=== PATIENT | male | born 2000 | race Caucasian/White ===

== ENCOUNTER 2023-10-27 02:30 | Emergency (ER) | payer OTHER, SELFPAY ==
[2023-10-27] VITALS (15 sets, daily range): BP systolic 148–181; BP diastolic 85–102; PULSE 109–127; RESP 20; TEMP 36.4; O2SAT 95–99; BMI 32.8
[2023-10-27] MEDS: LORazepam 1 MG TABLET PO ×2 (03:10→04:55)
[2023-10-27] MEDS: 0.9 % SODIUM CHLORIDE 1000 ml 1,000 ML IV ×2 (03:10→04:45)
--- NOTE | 2023-10-27 04:28 | ED.GENADULT ---
HPI - General Adult General Date Seen: 10/27/23 Chief complaint: Anxiety Stated complaint: Stroke (neurology) Source: patient Mode of arrival: ambulatory Limitations: no limitations History of Present Illness HPI narrative: Patient presents to the emergency department from work for right-sided facial numbness, decreased vision to right eye and full body weakness. He states he was at work normally when he started having these symptoms. He does state they have been improving since he arrived to the emergency department. He is brought here by a colleague. Was able to walk into the department. Denies ever having symptoms like this before. States his vision has improved significantly by still feels weak. He does admit to drinking a 0.5 L to L of whiskey daily for the past 2 months in states his last drink was at 07:00. Denies chest pain, shortness of breath, fevers, chills, headache. States he feels mildly dehydrated. States he was concerned he was having a stroke.? Related Data Previous Rx's Medication Instructions Recorded chlordiazepoxide HCl 25 mg capsule See Rx Instructions .Route 10/27/23 .COMPLEX PRN #22 caps Allergies Allergy/AdvReac Type Severity Reaction Status Date / Time No Known Drug Allergies Allergy Verified 10/27/23 05:07 [facility] Social History How often do you have a drink containing alcohol: 4 or more times a week How many standard drinks containing alcohol do you have on a typical day: 10 or more How often do you have six or more drinks on one occasion: Daily or almost daily AUDIT-C Alcohol total score: 12 Exam Narrative: Exam Narrative: Const: Well-nourished, Well-developed, in mild distress. Eyes: PERRL, no conjunctival injection, and symmetrical lids HENT: Atraumatic external nose and ears. Moist mucous membranes. Neck: Symmetric, trachea midline, No thyromegaly. CVS: Tachycardic, No murmurs or gallops. Peripheral pulses 2+ and equal in all extremities RESP: Unlabored respiratory effort. Clear to auscultation bilaterally. GI: Nontender/Nondistended, No rebound or guarding. MSK:Extremities w/o deformity, Normal Active ROM Skin: Warm, diaphoretic. No rashes or lesions. Neuro: Normal Muscle tone, No focal neurological deficits. Psych: Awake, Alert, & Oriented x3. Appropriate mood and affect. Const: Vital Signs, click to edit/add: Vital Signs - 24 hr 10/27/23 02:30 10/27/23 02:45 10/27/23 03:15 Temperature 97.6 F Pulse Rate Pulse Rate [Right Pulse Oximeter] 123 H 124 H 109 H Respiratory Rate 20 20 20 Blood Pressure Blood Pressure [Le ft Arm] Blood Pressure [Le ft Upper Arm] 181/87 H 164/94 H 151/102 H Pulse Oximetry 97 99 98 Oxygen Delivery Me thod Room Air Room Air Room Air 10/27/23 03:30 10/27/23 04:48 10/27/23 04:59 Temperature Pulse Rate 119 H Pulse Rate [Right Pulse Oximeter] 120 H 121 H Respiratory Rate 20 20 Blood Pressure Blood Pressure [Le ft Arm] 155/95 H Blood Pressure [Le ft Upper Arm] 155/95 H Pulse Oximetry 98 98 95 Oxygen Delivery Me thod Room Air Room Air 10/27/23 05:00 10/27/23 05:20 10/27/23 05:35 Temperature Pulse Rate 124 H 118 H Pulse Rate [Right Pulse Oximeter] Respiratory Rate Blood Pressure 152/101 H Blood Pressure [Le ft Arm] Blood Pressure [Le ft Upper Arm] Pulse Oximetry 95 96 Oxygen Delivery Me thod 10/27/23 05:40 10/27/23 05:42 10/27/23 05:43 Temperature Pulse Rate 127 H 117 H 113 H Pulse Rate [Right Pulse Oximeter] Respiratory Rate Blood Pressure 148/102 H Blood Pressure [Le ft Arm] Blood Pressure [Le ft Upper Arm] Pulse Oximetry 97 97 97 Oxygen Delivery Me thod 10/27/23 06:00 10/27/23 06:02 Temperature Pulse Rate 119 H 116 H Pulse Rate [Right Pulse Oximeter] Respiratory Rate Blood Pressure 148/85 H Blood Pressure [Le ft Arm] Blood Pressure [Le ft Upper Arm] Pulse Oximetry 95 96 Oxygen Delivery Me thod Course Vital Signs Vital signs: Initial Vital Signs Temperature 97.6 F 10/27/23 02:30 Temperature Source Temporal Artery Scan 10/27/23 02:30 Pulse Rate 123 H 10/27/23 02:30 Pulse Rhythm Regular 10/27/23 02:30 Respiratory Rate 20 10/27/23 02:30 Blood Pressure 181/87 H 10/27/23 02:30 Blood Pressure Mean 118 H 10/27/23 02:30 Blood Pressure Position Sitting 10/27/23 02:30 Pulse Oximetry 97 10/27/23 02:30 Oxygen Delivery Method Room Air 10/27/23 02:30 Vital Signs Temperature 97.6 F 10/27/23 02:30 Pulse Rate 123 H 10/27/23 02:30 Respiratory Rate 20 10/27/23 02:30 Blood Pressure 181/87 H 10/27/23 02:30 Pulse Oximetry 97 10/27/23 02:30 Oxygen Delivery Method Room Air 10/27/23 02:30 Temperature 97.6 F 10/27/23 02:30 Pulse Rate 116 H 10/27/23 06:02 Respiratory Rate 20 10/27/23 04:48 Blood Pressure 148/85 H 10/27/23 06:02 Pulse Oximetry 96 10/27/23 06:02 Oxygen Delivery Method Room Air 10/27/23 04:48 Medications Administered Medications: Generic Name Dose Route Start Last Admin Trade Name Freq PRN Reason Stop Dose Admin Sodium Chloride 1,000 mls @ 1,000 mls/hr 10/27/23 05:30 10/27/23 04:20 0.9 % Sodium Chloride 1000 Ml IV 10/27/23 06:29 Infused .Q1H ROSANNA Infusion Sodium Chloride 1,000 mls @ 1,000 mls/hr 10/27/23 05:30 10/27/23 05:36 0.9 % Sodium Chloride 1000 Ml IV 10/27/23 06:29 Infused .Q1H ROSANNA Infusion Discontinued Medications Generic Name Dose Route Start Last Admin Trade Name Freq PRN Reason Stop Dose Admin Lactated Ringer's 1,000 mls @ 1,000 mls/hr 10/27/23 04:31 10/27/23 05:26 Lactated Ringers 1000 Ml IV 10/27/23 05:30 Not Given .Q1H ONE Lactated Ringer's 1,000 mls @ 1,000 mls/hr 10/27/23 04:47 10/27/23 05:26 Lactated Ringers 1000 Ml IV 10/27/23 05:46 Not Given .Q1H ONE Lorazepam 1 mg 10/27/23 04:31 10/27/23 03:10 Lorazepam 1 Mg Tablet PO 10/27/23 04:32 1 mg ONCE ONE Administration Lorazepam 1 mg 10/27/23 04:47 10/27/23 04:55 Lorazepam 1 Mg Tablet PO 10/27/23 04:48 1 mg ONCE ONE Administration Potassium Chloride 40 meq 10/27/23 05:24 10/27/23 05:35 Potassium Chloride 10 Meq Capsule Er PO 10/27/23 05:25 40 meq ONCE ONE Administration Medical Decision Making MDM Narrative Medical decision making narrative: Patient is a 23-year-old male presenting to emergency department for weakness and right-sided facial numbness and vision issues. The symptoms have been improving even prior to arriving to the emergency department. Considering his age and bilateral weakness this seems unlikely to be a stroke. We will do a head CT though to rule out acute intracranial masses. He appears very anxious and a dose of Ativan was given. Will also give him fluids due to his likely dehydration. Will check a CMP, CBC, magnesium, EtOH, urinalysis. CMP showed some elevated AST and ALT levels. This is likely due to his heavy drinking that he has been doing. Rest of his lab work shows no concerning abnormalities other than a slightly low potassium at 2.9, this was replenished. Head CT shows no concerning findings. Initially his heart rate did improve after the Ativan and fluids any states he was feeling better. We continue to monitor and his heart rate went to the 130s to 140s. Still appears to be sinus tachycardia. This is likely secondary to alcohol withdrawals considering his history. Will do CIWA and given another dose of Ativan along with another L of fluids. His heart rate after the 2nd round of medications was in the 110's. He states all his symptoms are now gone. CIWA score was 1 at this point. I spoke to the patient and he is not showing any other signs of alcohol withdrawal other than the tachycardia. I explained to him the concerns for alcohol withdrawal he states he understands. Explained that he will need to return to the emergency department if he starts developing worsening symptoms of withdrawal. He is having no signs of DT or alcoholic hallucinations. He is still tachycardic and is mildly hypertensive but he is otherwise asymptomatic and his last drink has been too recent for DTs. We did check a point of care troponin also considering the persistent tachycardia. It was 0.00. EKG showed no concerning findings other than the previously mentioned tachycardia Lab Data Labs: Lab Results 10/27/23 10/27/23 Range/Units 04:31 06:07 WBC 8.79 (4.50-11.00) K/uL RBC 5.15 (4.30-5.90) m/uL Hgb 15.6 (13.5-17.5) gm/dL Hct 44.1 (37.0-53.0) % MCV 86 (80-100) fL MCH 30 (26-34) pg MCHC 35 (32-36) gm/dL RDW Coeff of Angelika 12.5 (11.5-15.5) % Plt Count 212 (140-440) K/uL Neut % (Auto) 44.2 (42.0-72.0) % Lymph % (Auto) 42.4 (20-44) % [place] % (Auto) 11.0 (0.0-11.0) % Eos % (Auto) 1.3 (0.0-7.0) % Baso % (Auto) 0.5 (0.0-3.0) % Neut # (Auto) 3.90 (1.7-7.0) K/uL Lymph # (Auto) 3.70 H (0.90-2.90) K/uL [place] # (Auto) 1.00 H (0.00-0.90) K/UL Eos # (Auto) 0.10 (0.00-0.50) K/uL Baso # (Auto) 0.00 (0.00-0.30) K/uL Abs Immat Gran (auto) 0.10 (0.00-0.30) K/uL Imm/Tot Granulo (auto) 0.6 % Sodium 136 (135-149) mmol/L Potassium 2.9 L* (3.6-5.1) mmol/L Chloride 103 (96-114) mmol/L Carbon Dioxide 25 (20-32) mmol/L Anion Gap 8 (7-15) mEq/L BUN 17 (5-24) mg/dL Creatinine 1.1 (0.5-1.5) mg/dL Estimated Creat Clear 109.34 Estimated GFR 96 ml/min Glucose 101 (60-115) mg/dL Calcium 9.0 (8.4-10.6) mg/dL Magnesium 1.4 L (1.5-2.6) mg/dL Total Bilirubin 0.6 (0.1-1.5) mg/dL AST 120 H (12-35) U/L ALT 146 H (4-50) U/L Alkaline Phosphatase 91 (40-150) U/L Total Protein 8.8 H (6.0-8.3) g/dL Albumin 5.0 (3.3-5.0) g/dL Ethyl Alcohol < 0.01 L (0.01-0.03) % POC Troponin I 0.00 L (0.01-0.04) ng/ml Imaging Data CT scan - head: Attestation: I have reviewed the pertinent imaging results. Radiologist's impression: Unremarkable noncontrast head CT. Please note that all CT scans at this facility use dose modulation, iterative reconstruction, and/or weight-based dosing when appropriate to reduce radiation dose to as low as reasonably achievable. Dictated by Anastacio Ratliff MD @ 10/27/2023 3:52:18 AM ECG Data Attestation: I personally reviewed and interpreted this ECG as follows: Prior ECG tracings: not available for review Interpretation: Sinus tachycardia with rate of 110 beats per minute, normal intervals, indeterminate axis, no ST or T-wave abnormalities. Discharge Plan Discharge Clinical Impression: Alcohol use disorder, Dehydration, Elevated LFTs Alcohol withdrawal Qualifiers: Complication of substance-induced condition: uncomplicated Qualified Code(s): F10.930 - Alcohol use, unspecified with withdrawal, uncomplicated Patient Disposition: Home, Self-Care Condition: Stable Instructions: Dehydration (DC), Abuse of Alcohol (ED), Acute Delirium (ED) Additional Instructions: Your symptoms were likely secondary to dehydration. Of note your liver enzymes are starting to elevate. This could be from dehydration could also be the 1st signs of liver disease caused by your heavy drinking. I highly recommend you quit drinking alcohol as it will likely lead to you developing cirrhosis and eventual I am also concerned year going through alcohol withdrawals. Take the Librium as directed. Symptoms of worsening withdrawals includes seizures, hallucinations, issues with your attention, awareness, memory, orientation, perception. If you or anyone else notices the symptoms return to the emergency department immediately. This could be sign of worsening withdrawal symptoms. Prescriptions: New chlordiazepoxide HCl 25 mg capsule See Rx Instructions .ROUTE .COMPLEX PRNQty: 22 0RF Rx Instructions: 50mg of chlordiazepoxide every 8 hours for two days, then decrease to 25mg every 8 hours for another two days followed by 25mg PRN as needed Follow Up/Referrals: Provider,Not a Local [Primary Care Provider] - Stand Alone Forms: Appointedd Info Instructions
--- NOTE | 2023-10-27 04:31 | CT_ITS ---
Patient: RONN ALFREDO Facility:?[facility] Patient ID:?[id number] Site Patient ID:?[id number]. Site :?[id number] Study:?CT-Head W/O-10/27/2023 3:16:08 AM Ordering Physician:LAVERNE Final Report: INDICATION: Right-sided facial numbness. TECHNIQUE: CT head without contrast. COMPARISON: None. FINDINGS: CSF spaces: Within normal limits for age. Brain parenchyma and extra-axial spaces: The delacruz-white differentiation is normal. No sign of mass, hemorrhage, or midline shift. No extra-axial fluid collection. Skull base and calvarium: The visualized paranasal sinuses and mastoid air cells demonstrate no acute or significant findings. The visualized orbits are grossly unremarkable. No skull fractures. IMPRESSION: Unremarkable noncontrast head CT. Please note that all CT scans at this facility use dose modulation, iterative reconstruction, and/or weight-based dosing when appropriate to reduce radiation dose to as low as reasonably achievable. Dictated by Anastacio Ratliff MD @ 10/27/2023 3:52:18 AM Signed by:?Anastacio Ratliff MD @10/27/2023 3:52:18 AM (Electronic Signature)
[2023-10-27 05:20] LABS: Sodium* 136 mmol/L (135-149)
[2023-10-27 05:21] LABS: Anion Gap 8 mEq/L (7-15); Carbon Dioxide* 25 mmol/L (20-32); Chloride* 103 mmol/L (96-114); Potassium* 2.9 mmol/L (3.6-5.1)
[2023-10-27 05:22] LABS: Alanine Aminotransferase* 146 U/L (4-50); Alkaline Phosphatase* 91 U/L (40-150); Aspartate Amino Transferase* 120 U/L (12-35); Bilirubin Total* 0.6 mg/dL (0.1-1.5); Blood Urea Nitrogen* 17 mg/dL (5-24); Creatinine* 1.1 mg/dL (0.5-1.5); Est. Creatinine Clearance* 109.34; Estimated Glomerular Filt Rate 96 ml/min; Glucose* 101 mg/dL (60-115); Magnesium* 1.4 mg/dL (1.5-2.6); Total Protein* 8.8 g/dL (6.0-8.3)
[2023-10-27 05:23] LABS: Ethanol* < 0.01 % (0.01-0.03); Hematocrit 44.1 % (37.0-53.0); Hemoglobin* 15.6 gm/dL (13.5-17.5); Red Blood Count 5.15 m/uL (4.30-5.90); White Blood Count* 8.79 K/uL (4.50-11.00)
[2023-10-27 05:24] LABS: Basophils Percent Auto 0.5 % (0.0-3.0); Eosinophils Percent Auto 1.3 % (0.0-7.0); Immature Granulocytes Pct Auto 0.6 %; Lymphocytes Percent Auto 42.4 % (20-44); Mean Corpuscular HGB Conc 35 gm/dL (32-36); Mean Corpuscular Hemoglobin 30 pg (26-34); Mean Corpuscular Volume 86 fL (80-100); Neutrophils Percent Auto 44.2 % (42.0-72.0); Platelet Count* 212 K/uL (140-440); RDW Coefficient of Variation % 12.5 % (11.5-15.5)
[2023-10-27 05:25] LABS: Slide Review Reflex No
[2023-10-27] MEDS: POTASSIUM CHLORIDE 10 MEQ CAPSULE ER 40 MEQ PO (05:35)
--- NOTE | 2023-10-27 06:18 | ED.NURSE ---
pt ambulated to restroom. reports feeling much better.
[2023-10-27 06:38] LABS: Appearance Urine Clear (Clear); Bilirubin Urine Negative (Negative); Blood Urine Negative (Negative); Color Urine Yellow (Yellow); Glucose Urine Negative (Negative); Ketones Urine Negative (Negative); Leukocyte Esterase Urine Negative (Negative); Nitrite Urine Negative (Negative); Protein Urine Negative (Negative); RBC Urine 0-2 (0-2); Urobilinogen Urine 0.2 (0.2-1.0); WBC Urine 0-2 (0-5)
== END 2023-10-27 06:25 | disposition home or self-care (01) ==
PROVIDERS: Emergency Provider Student in an Organized Health Care Education/Training Program
DX: F10.939 Alcohol use, unspecified with withdrawal, unspecified (principal); E86.0 Dehydration; R79.89 Other specified abnormal findings of blood chemistry
CPT/HCPCS: 36415; 70450; 80053; 81001; 82077; 83735; 84484; 85025; 96360; 99283; 99284; A9270; J7030

== ENCOUNTER 2024-01-31 21:38 | Emergency (ER) | payer OTHER, SELFPAY ==
[2024-01-31 21:44] VITALS: BP 145/74; PULSE 100; RESP 20; TEMP 37.1; O2SAT 99; BMI 33.5
--- NOTE | 2024-01-31 22:13 | ED.GENADULT ---
HPI - General Adult General Chief complaint: Diarrhea Stated complaint: Diarrhea, lightheaded Time Seen by Provider: 01/31/24 21:56 History of Present Illness HPI narrative: CC: Diarrhea, Nausea, Dizziness pt. thinks he might have food poisoning from food he ate this morning. around 1700, started having loose stools, about 3. denies vomiting , but nauseated . feels dizzy also. 23-year-old man presenting to the emergency department with concern of diarrhea and some shortness of breath and feeling unsteady. Has been experiencing diarrhea over the last 5 hours. Began feeling unwell this morning after eating some suspect beef. Has been nauseated but not vomiting. Diarrhea then began about 8 hours later. Otherwise no particular ill exposures. He mentions a number of time that he has been drinking a lot of water trying to stay hydrated. Feels weaker. No abdominal pain. Denies any alcohol ingestion. Related Data Home Medications ?Medication ?Instructions ?Recorded ?Confirmed No Known Home Medications 01/31/24 01/31/24 Allergies Allergy/AdvReac Type Severity Reaction Status Date / Time No Known Drug Allergies Allergy Verified 01/31/24 21:46 Review of Systems Status of ROS: Reports: 6 or more systems reviewed and unremarkable except as noted in History and below [facility] Medical History No significant past medical history Surgical History No significant past surgical history Social History Smoking Status: Never smoker Second hand tobacco smoke exposure: No How often do you have a drink containing alcohol: never How many standard drinks containing alcohol do you have on a typical day: 10 or more How often do you have six or more drinks on one occasion: Daily or almost daily AUDIT-C Alcohol total score: 8 Non-prescribed substance use: denies use service: No Exam Narrative: Exam Narrative: Pleasant. NAD. Appears tired. Skin is warm and dry. Is well-perfused. No rash. Abdomen with present bowel sounds diffusely mildly tender. Heart in elevated rate regular rhythm. Lungs appear to be clear. Const: Vital Signs, click to edit/add: Vital Signs - 24 hr 01/31/24 21:44 Temperature 98.8 F Pulse Rate [Right Pulse Oximeter] 100 Respiratory Rate 20 Blood Pressure [Ri ght Upper Arm] 145/74 H Pulse Oximetry 99 Oxygen Delivery Me thod Room Air Documenting provider has reviewed patient's vital signs: yes Course Vital Signs Vital signs: Initial Vital Signs Temperature 98.8 F 01/31/24 21:44 Temperature Source Temporal Artery Scan 01/31/24 21:44 Pulse Rate 100 01/31/24 21:44 Respiratory Rate 20 01/31/24 21:44 Blood Pressure 145/74 H 01/31/24 21:44 Blood Pressure Mean 97 01/31/24 21:44 Blood Pressure Position Sitting 01/31/24 21:44 Pulse Oximetry 99 01/31/24 21:44 Oxygen Delivery Method Room Air 01/31/24 21:44 Vital Signs Temperature 98.8 F 01/31/24 21:44 Pulse Rate 100 01/31/24 21:44 Respiratory Rate 20 01/31/24 21:44 Blood Pressure 145/74 H 01/31/24 21:44 Pulse Oximetry 99 01/31/24 21:44 Oxygen Delivery Method Room Air 01/31/24 21:44 Temperature 98.8 F 02/01/24 00:09 Pulse Rate 89 02/01/24 00:09 Respiratory Rate 20 02/01/24 00:09 Blood Pressure 125/78 02/01/24 00:09 Pulse Oximetry 99 02/01/24 00:00 Oxygen Delivery Method Room Air 02/01/24 00:00 Medications Administered Medications: Discontinued Medications Generic Name Dose Route Start Last Admin Trade Name Freq PRN Reason Stop Dose Admin Sodium Chloride 1,000 mls @ 1,000 mls/hr 01/31/24 22:20 01/31/24 23:22 0.9 % Sodium Chloride 1000 Ml IV 01/31/24 23:19 Infused .Q1H ONE Infusion Ondansetron HCl 4 mg 01/31/24 22:20 01/31/24 22:33 Ondansetron 2 Mg/Ml Inj IVP 01/31/24 22:21 4 mg ONCE ONE Administration Medical Decision Making [facility] Narrative Medical decision making narrative: Differential does include gastroenteritis or least enteritis of likely viral etiology, possibly food poisoning as he suggests. does not appear to have exposures to farm animals. No significant travel. Possibly COVID or influenza like illness. No history to suggest Crohn's or ulcerative colitis. Could be a colitis. Hepatitis a? Does appear to need some IV hydration. Given degree of fluid loss as described, I would check electrolytes and replace as necessary. Reassess for improvement and pending labs prior to further consideration for imaging at this time. Given IV hydration and Zofran. On reassessment overall is improved. Labs are reassuring with potassium slightly low at 3.1. Would not do imaging at this point. See patient discharge plan for further discussion Medical Records Medical records reviewed: Yes I reviewed the patient's medical records Lab Data Lab results reviewed: Yes I reviewed the patient's lab results Labs: Lab Results 01/31/24 Range/Units 22:30 WBC 5.45 (4.50-11.00) K/uL RBC 4.99 (4.30-5.90) m/uL Hgb 15.1 (13.5-17.5) gm/dL Hct 43.3 (37.0-53.0) % MCV 87 (80-100) fL MCH 30 (26-34) pg MCHC 35 (32-36) gm/dL RDW Coeff of Angelika 11.8 (11.5-15.5) % Plt Count 189 (140-440) K/uL Neut % (Auto) 62.7 (42.0-72.0) % Lymph % (Auto) 22.0 (20-44) % [place] % (Auto) 12.8 H (0.0-11.0) % Eos % (Auto) 0.6 (0.0-7.0) % Baso % (Auto) 0.6 (0.0-3.0) % Neut # (Auto) 3.42 (1.7-7.0) K/uL Lymph # (Auto) 1.20 (0.90-2.90) K/uL [place] # (Auto) 0.70 (0.00-0.90) K/UL Eos # (Auto) 0.03 (0.00-0.50) K/uL Baso # (Auto) 0.03 (0.00-0.30) K/uL Abs Immat Gran (auto) 0.07 (0.00-0.30) K/uL Imm/Tot Granulo (auto) 1.3 % Sodium 133 L (135-149) mmol/L Potassium 3.1 L (3.6-5.1) mmol/L Chloride 98 (96-114) mmol/L Carbon Dioxide 25 (20-32) mmol/L Anion Gap 10 (7-15) mEq/L BUN 16 (5-24) mg/dL Creatinine 1.1 (0.5-1.5) mg/dL Estimated Creat Clear 109.34 Estimated GFR 96 ml/min Glucose 118 H (60-115) mg/dL Calcium 9.0 (8.4-10.6) mg/dL C-Reactive Protein < 0.5 L (0.5-1.0) mg/dL SARS-CoV-2 (PCR) Negative SARS-CoV-2 (Negative) Influenza Type A (PCR) Negative PCR FLU A (Negative) Influenza Type B (PCR) Negative PCR FLU B (Negative) Discharge Plan Discharge Clinical Impression: Gastroenteritis, Acute hypokalemia Patient Disposition: Home, Self-Care Condition: Improved Additional Instructions: Continue to focus on hydration. Might want a more bland diet over the next couple of days. Be seen for marked increase in abdominal pain, intractable vomiting or diarrhea, associated fever. Zofran from [facility] If diarrhea is continuing and you do not have a fever nor do you see blood in your stool, you might try Imodium/loperamide to slow it up. Prescriptions: No Action No Known Home Medications Follow Up/Referrals: Provider,Not a Local [Primary Care Provider] - Stand Alone Forms: [employer] Info Instructions
[2024-01-31] MEDS: ONDANSETRON 2 MG/ML inj 4 MG IVP (22:33)
[2024-01-31] MEDS: 0.9 % SODIUM CHLORIDE 1000 ml 1,000 ML IV (22:34)
[2024-01-31 22:55] LABS: Chloride* 98 mmol/L (96-114); Potassium* 3.1 mmol/L (3.6-5.1); Sodium* 133 mmol/L (135-149)
[2024-01-31 22:58] LABS: Creatinine* 1.1 mg/dL (0.5-1.5); Est. Creatinine Clearance* 109.34; Estimated Glomerular Filt Rate 96 ml/min
[2024-01-31 22:59] LABS: Anion Gap 10 mEq/L (7-15); Blood Urea Nitrogen* 16 mg/dL (5-24); Carbon Dioxide* 25 mmol/L (20-32); Glucose* 118 mg/dL (60-115)
[2024-01-31 23:00] LABS: Basophils Absolute Auto 0.03 K/uL (0.00-0.30); Basophils Percent Auto 0.6 % (0.0-3.0); Eosinophils Absolute Auto 0.03 K/uL (0.00-0.50); Eosinophils Percent Auto 0.6 % (0.0-7.0); Hematocrit 43.3 % (37.0-53.0); Hemoglobin* 15.1 gm/dL (13.5-17.5); Immature Granulocytes Abs Auto 0.07 K/uL (0.00-0.30); Immature Granulocytes Pct Auto 1.3 %; Mean Corpuscular HGB Conc 35 gm/dL (32-36); Mean Corpuscular Hemoglobin 30 pg (26-34); Mean Corpuscular Volume 87 fL (80-100); Monocytes Percent Auto 12.8 % (0.0-11.0); Neutrophils Absolute Auto 3.42 K/uL (1.7-7.0); Neutrophils Percent Auto 62.7 % (42.0-72.0); Platelet Count* 189 K/uL (140-440); RDW Coefficient of Variation % 11.8 % (11.5-15.5); Red Blood Count 4.99 m/uL (4.30-5.90); White Blood Count* 5.45 K/uL (4.50-11.00)
[2024-01-31 23:01] LABS: Slide Review Reflex No
[2024-01-31 23:03] LABS: C Reactive Protein* < 0.5 mg/dL (0.5-1.0)
[2024-01-31 23:19] LABS: PCR FLU A Negative PCR FLU A (Negative); PCR FLU B Negative PCR FLU B (Negative); SARS PCR* Negative SARS-CoV-2 (Negative)
[2024-02-01] VITALS: BP 125/78; PULSE 89; RESP 20; TEMP 37.1; O2SAT 99
[2024-02-01 00:09] VITALS: BP 125/78; PULSE 89; RESP 20; TEMP 37.1
== END 2024-02-01 00:09 | disposition home or self-care (01) ==
PROVIDERS: Emergency Provider Family Medicine
DX: K52.9 Noninfective gastroenteritis and colitis, unspecified (principal); E87.6 Hypokalemia
CPT/HCPCS: 36415; 80048; 85025; 86140; 87631; 96374; 99284; J2405; J7030

== ENCOUNTER 2024-02-07 03:24 | Emergency (ER) | payer OTHER, SELFPAY ==
[2024-02-07 03:30] VITALS: BP 155/104; PULSE 108; RESP 18; TEMP 36.5; O2SAT 100; BMI 33.5
--- NOTE | 2024-02-07 03:59 | ED_ITS ---
HPI - General Adult General Date Seen: 02/07/24 Chief complaint: Unspecified Complaint, Adult Stated complaint: brain fog, confusion, loss of balance Time Seen by Provider: 02/07/24 03:45 Source: patient Mode of arrival: ambulatory Limitations: no limitations History of Present Illness HPI narrative: Patient is a 23-year-old male who comes in at 3:30 a.m. in the morning with concerns of a week of balance issues, brain fog, confusion. He was seen six days ago after having some vomiting and diarrhea after eating some meat that sat out on the counter for four days. Those GI symptoms resolved within 24-48 hours. He was seen in October with excessive alcohol intake and elevated liver tests. He tells me today that he is only having a few beers once or twice a week now but that story is different than what he stated six days ago. He denies other drug use. He denies a significant history of anxiety although appears very anxious today. Dr. Fernandes has him fearful of brain parasites causing his symptoms. He does not have clinic doctor. He works at [employer]. Related Data Home Medications ?Medication ?Instructions ?Recorded ?Confirmed No Known Home Medications 01/31/24 01/31/24 Allergies Allergy/AdvReac Type Severity Reaction Status Date / Time No Known Drug Allergies Allergy Verified 01/31/24 21:46 Review of Systems Narrative: Review of systems is outlined above otherwise noted to be negative. [facility] Medical History (Updated 02/07/24 @ 05:22 by Andres Haq MD) No significant past medical history Surgical History (Updated 02/01/24 @ 00:00 by Lazaro Kelly RN) No significant past surgical history Social History Smoking Status: Never smoker Second hand tobacco smoke exposure: No How often do you have a drink containing alcohol: never How many standard drinks containing alcohol do you have on a typical day: 10 or more How often do you have six or more drinks on one occasion: Daily or almost daily AUDIT-C Alcohol total score: 8 Non-prescribed substance use: denies use Exam Narrative: Exam Narrative: Vitals noted. He appears anxious with rapid, pressured speech. HEENT: Conjunctiva clear. Posterior pharynx is clear without erythema or exudate. Neck is supple without adenopathy, thyromegaly, carotid bruit. Lungs: Clear to auscultation in all burger. No wheezes, rales, rhonchi. Heart: Regular rate and rhythm without murmur. Abdomen: Soft and nontender. No guarding, rigidity, rebound. Bowel sounds are normal. No palpable masses. Extremities: No cyanosis or edema. Good distal pulses. Skin: No abnormalities noted of the exposed skin. Neurologic: Awake, alert, fully oriented. Neurologic exam is nonfocal. Const: Vital Signs, click to edit/add: Vital Signs - 24 hr 02/07/24 03:30 Temperature 97.7 F Pulse Rate [Pulse Oximeter] 108 H Respiratory Rate 18 Blood Pressure [Ri ght Upper Arm] 155/104 H Pulse Oximetry 100 Oxygen Delivery Me thod Room Air Course Course ED Course: Patient is seen and examined. He appears very anxious to me. He acknowledges that he was on the Internet and read about parasites getting from the GI tract into the brain in causing the symptoms that he described on admission. His physical exam is reassuring other than an elevated blood pressure. I reminded him that he had a normal CT three months ago which should effectively rule out brain tumor. He minimizes his alcohol intake today after stating three days ago that he was having 8-10 drinks per day. I did agree to order some screening labs. I will also do a alcohol level and urine drug screen. I have strongly encouraged him to establish care with a PCP for further not emergent concerns. Reevaluation(s) Reevaluation #1: His lab tests are all reassuring other than some minor elevations of his LFTs. His GGT is 140, AST 98, ALT 128. Urine drug screen is positive for benzodiazepines. I believe he was given a dose in the ER a few days ago. He has a prescription for Librium given in October. He was somewhat accepting of anxiety as a possible cause of his symptoms. He was reassured by his mainly normal test results. I have encouraged him to establish care with a PCP have provided phone numbers for both of the local clinics. He was receptive and appreciative. Vital Signs Vital signs: Initial Vital Signs Temperature 97.7 F 02/07/24 03:30 Temperature Source Temporal Artery Scan 02/07/24 03:30 Pulse Rate 108 H 02/07/24 03:30 Respiratory Rate 18 02/07/24 03:30 Blood Pressure 155/104 H 02/07/24 03:30 Blood Pressure Mean 121 H 02/07/24 03:30 Blood Pressure Position Sitting 02/07/24 03:30 Pulse Oximetry 100 02/07/24 03:30 Oxygen Delivery Method Room Air 02/07/24 03:30 Vital Signs Temperature 97.7 F 02/07/24 03:30 Pulse Rate 108 H 02/07/24 03:30 Respiratory Rate 18 02/07/24 03:30 Blood Pressure 155/104 H 02/07/24 03:30 Pulse Oximetry 100 02/07/24 03:30 Oxygen Delivery Method Room Air 02/07/24 03:30 Temperature 97.7 F 02/07/24 03:30 Pulse Rate 108 H 02/07/24 03:30 Respiratory Rate 18 02/07/24 03:30 Blood Pressure 155/104 H 02/07/24 03:30 Pulse Oximetry 02/07/24 03:30 Oxygen Delivery Method Room Air 02/07/24 03:30 Medical Decision Making Lab Data Labs: Lab Results 02/07/24 Range/Units 04:05 WBC 8.75 (4.50-11.00) K/uL RBC 5.23 (4.30-5.90) m/uL Hgb 15.9 (13.5-17.5) gm/dL Hct 46.0 (37.0-53.0) % MCV 88 (80-100) fL MCH 30 (26-34) pg MCHC 35 (32-36) gm/dL RDW Coeff of Angelika 12.1 (11.5-15.5) % Plt Count 206 (140-440) K/uL Neut % (Auto) 67.0 (42.0-72.0) % Lymph % (Auto) 22.9 (20-44) % [place] % (Auto) 8.1 (0.0-11.0) % Eos % (Auto) 0.7 (0.0-7.0) % Baso % (Auto) 0.6 (0.0-3.0) % Neut # (Auto) 5.87 (1.7-7.0) K/uL Lymph # (Auto) 2.00 (0.90-2.90) K/uL [place] # (Auto) 0.70 (0.00-0.90) K/UL Eos # (Auto) 0.06 (0.00-0.50) K/uL Baso # (Auto) 0.05 (0.00-0.30) K/uL Abs Immat Gran (auto) 0.06 (0.00-0.30) K/uL Imm/Tot Granulo (auto) 0.7 % Sodium 139 (135-149) mmol/L Potassium 3.7 (3.6-5.1) mmol/L Chloride 105 (96-114) mmol/L Carbon Dioxide 23 (20-32) mmol/L Anion Gap 11 (7-15) mEq/L BUN 16 (5-24) mg/dL Creatinine 1.1 (0.5-1.5) mg/dL Estimated Creat Clear 109.34 Estimated GFR 96 ml/min Glucose 106 (60-115) mg/dL Calcium 9.2 (8.4-10.6) mg/dL Total Bilirubin 0.4 (0.1-1.5) mg/dL Direct Bilirubin 0.3 (0.0-0.5) mg/dL GGT 140 H (8-55) U/L AST 98 H (12-35) U/L ALT 128 H (4-50) U/L Alkaline Phosphatase 81 (40-150) U/L Total Protein 8.5 H (6.0-8.3) g/dL Albumin 5.1 H (3.3-5.0) g/dL TSH 1.730 (0.270-4.20) uIU/mL Urine Color Yellow (Yellow) Urine Appearance Clear (Clear) Urine pH 7.0 (5.0-8.5) Ur Specific [place] 1.020 (1.000-1.030) Urine Protein Negative (Negative) Urine Glucose (UA) Negative (Negative) Urine Ketones Negative (Negative) Urine Blood Negative (Negative) Urine Nitrite Negative (Negative) Urine Bilirubin Negative (Negative) Urine Urobilinogen 0.2 (0.2-1.0) Ur Leukocyte Esterase Negative (Negative) Urine Opiates Screen Negative (Negative) Ur Oxycodone Screen Negative (Negative) Urine Methadone Screen Negative (Negative) Ur Barbiturates Screen Negative (Negative) U Tricyclic Antidepress Negative (Negative) Ur Phencyclidine Scrn Negative (Negative) Ur Amphetamines Screen Negative (Negative) U Methamphetamines Scrn Negative (Negative) U Benzodiazepines Scrn POSITIVE A (Negative) Urine Cocaine Screen Negative (Negative) U Marijuana (THC) Screen Negative (Negative) Ur Drug Screen Comment See Note Ethyl Alcohol < 0.01 L (0.01-0.03) % Discharge Plan Discharge Clinical Impression: Anxiety about health Patient Disposition: Home, Self-Care Condition: Stable Additional Instructions: Your blood tests are all reassuring. Your elevated blood pressure, elevated heart rate, elevated liver tests should all be repeated with one of the local clinic providers. Avoid excessive alcohol consumption. Stay hydrated. Establish care with a local provider to discuss treatment for anxiety and follow-up of these other issues. [facility] - [phone] [facility] - [phone]. Prescriptions: No Action No Known Home Medications Follow Up/Referrals: Provider,Not a Local [Primary Care Provider] - Stand Alone Forms: Seeo Info Instructions
--- OUTSIDE RECORDS SUMMARY | 2024-02-07 04:03 | XMS_ITS | Clinical Summary ---
Author Organization [facility] Address [place], [place] [address] Care Team Providers Care Granite Countertop Installer Name Role Phone Arthur Jamison MD Unavailable [phone] Deisi Ford Primary Care Provider Allergies No known active allergies Medications Medication Sig Dispensed Refills Start Date End Date Status lisdexamfetamine (Vyvanse) 40 mg capsuleIndications:ADH D (attention deficit hyperactivity disorder), combined type Take 1 Capsule (40 mg) by mouth every morning. 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 TLSO braced times 10weeks. Immunizations Name Administration Dates Next Due DTaP 09/27/2003, 0,05/02/1999,02/03/1999,0 1998 HIB-HepB (Comvax) 11/13/1999,02/03/1999,11/30/18 99 HPV 9 (Gardasil 9) 02/16/2015 Hepatitis A (Peds) 07/12/2011,01/10/2011 Human Papilloma Virus Vaccine 02/23/2014, 014 Inactivated Polio Vaccine 09/27/2003,02/27/2000, 02/03/1999,1998 MMR 09/27/2003,02/27/2000 Meningococcal Vaccine (Menveo) 02/18/2017,2013 Tdap 01/10/2011 Varicella Vaccine 01/10/2011,11/13/1999 Social History Tobacco Use Types Packs/Day Years Used Date Smoking Tobacco: Never Smokeless Tobacco: Never Tobacco Cessation:Counseling Given: Yes Alcohol Use Standard Drinks/Week Comments No 0 (1 standard drink = 0.6 oz pur e alcohol) PHQ-2 Answer Date Recorded PHQ-2 TOTAL SCORE 0 10/31/2020 Social Connections Answer Date Recorded Frequency of Communication with Friends and Fami ly Not on file 07/15/2021 Financial Resource Strain Answer Date R ecorded Difficulty of Paying Living Expenses Not on file 07/15/2021 Difficulty of Paying Living Expenses Not on file 07/15/2021 Sex and Gender Information Value Date Recorded Sex Assigned at Not on file Gender Identity Not on file Sexual Orientation Not on file Obstetrics History Last Filed Vital Signs Vital Sign Reading Time Taken Comments Blood Pressure 136/80 10/31/2020 1:25 PM CDT Pulse 74 10/31/2020 1:25 PM CDT Temperature 36.1 ??C (97 ??F) 10/31/2020 1:25 PM CDT Respiratory Rate 16 10/31/2020 1:25 PM CDT Oxygen Saturation 99% 10/31/2020 1:25 PM CDT Inhaled Oxygen Concentration - - Weight 86.4 kg (190 lb 8 oz) 10/31/2020 1:25 PM CDT Height 178 cm (5' 10.08) 03/24/2019 11:12 AM CD T Body Mass Index - - Plan of Treatment Health Maintenance Due Date Last Done Comments HIV for age 15-65 2013 Hepatitis C screening for age 18-79 2016 BMI (ht and wt on same day) for age 18+ 03/24/2020 03/24/2019, 07/18/2018, 02/10/2018, Additional history exists Tetanus booster 01/10/2021 01/10/2011 Depression screening for age 12+ 10/31/2021 10/31/2020, 03/24/2019, 02/10/2018, Additional history exists COVID-19 vaccine series (2022- season) 2023 Influenza for age 9-49 03/15/2024 Tdap Completed 01/10/2011 HPV series for age 9-26 Completed 02/17/20 15, 02/23/2014, 01/14/2014 Pneumococcal series for age 6-64 Aged Out No longer eligible based on patient's age to complete this topic Care Teams Granite Countertop Installer Relationship Specialty Start Date End Date Deisi Ford PA [address] [place] [address] PCP - General Physician Resident Care Assistant 07/09/18 Arthur Jamison MD Family Practice Family Practice 06/14/11
--- OUTSIDE RECORDS SUMMARY | 2024-02-07 04:03 | XMS_ITS | Clinical Summary ---
Author Organization [facility] Address [address] [place] [address] Care Team Providers Care Foreign Language Instructor Name Role Phone Elsewhere, Pcp Primary Care Provider Unavailabl e Source Comments Patient records contain information from all sites at [facility]. For routine questions regarding patient records, call [phone] during business hours, M-F 8:00 AM - 5:00 PM Central Time. Record requests for emergency care only can be directed to [phone] at any time.[facility] Allergies No known active allergies Medications Medication Sig Dispensed Refills Start Date End Date Status loratadine-pseudoephed rine (CLARITIN-D 12-hour) 5-120 mg per 12 hr tablet Take 1 tablet by mouth 2 (two) times a day. Active Active Problems No known active problems Social History Tobacco Use Types Packs/Day Years Used Date Smoking Tobacco: Former Cigarettes Smokeless Tobacco: Never Nutrition Answer Date Recorded Nutrition: EVOO Fat Source Unknown 03/05 Nutrition: Servings of Fruits/Vegetables per Day Not on file 03/05/2022 Dental Answer Date Recorded Dental: Regular Dentist Unknown 03/05/20 Sex and Gender Information Value Date Recorded Sex Assigned at Not on file Gender Identity Not on file Sexual Orientation Not on file Last Filed Vital Signs Vital Sign Reading Time Taken Comments Blood Pressure 136/83 10/11/2022 8:28 AM CDT Pulse 98 10/11/2022 8:25 AM CDT Temperature 36.8 ??C (98.3 ??F) 10/11/2022 8:25 AM CD T Respiratory Rate 20 10/11/2022 8:25 AM CDT Oxygen Saturation 98% 10/11/2022 8:25 AM CDT Inhaled Oxygen Concentration - - Weight 115 kg (252 lb 10.4 oz) 10/11/2022 8:25 A M CDT Height 180.2 cm (5' 10.95) 08/06/2022 1:[address] Body Mass Index 35.29 08/06/2022 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 Plan of Treatment Health Maintenance Due Date Last Done Comments DTaP,Tdap,and Td Vaccines (7 - Td or Tdap) 01/10/2021 01/10/2011, 09/27/2003, 02/27/2000, Additional history exists COVID-19 Vaccine (24 season) 2023 Depression Screening (Annual PHQ-2) 07/15/2023 Influenza Vaccine (#1) 2024 Hepatitis B Vaccines Completed 11/13/1999, 02/03/1999, 1998 HPV Vaccines Completed 02/16/2015, 02/12, 01/14/2014 HIV Screening Completed 03/06/2022 Hepatitis C Screening Completed 03/06/2022 Pneumococcal vaccine (0-64 years) Aged Out No longer eligible based on patient's age to complete this topic Procedures Procedure Name Priority Date/Time Associated Diagnosis Comments HCV AB SCRN W/REFLEX TO HCV PCR, S Routine 03/06/2022 10:56 AM CDT Sexually Transmitted Disease Counseling Behavior Sexual High Risk Heterosexual HIV-1/-2 AG AND AB SCREEN, PLASMA Routine 03/06/2022 10:56 AM CDT Sexually Transmitted Disease Counseling Behavior Sexual High Risk Heterosexual from Last 3 Months or Most Recently Relevant to Health Maintenance Results * HIV-1/-2 Ag and Ab Screen, Plasma (03/06/2022 10:56 AM CDT) HIV Ag/Ab Screen, P Negative Negative 03/06/2022 9:57 PM CDT [facility] Comment: Negative result does not rule out HIV infection. If exposure to HIV infection occurred <14 days ago, contact the laboratory to request addition of HIV-1 RNA detection / quantification test. HIV-1 p24 Ag Screen, P Negative Negative 03/06/2022 9:57 PM CDT [facility] Comment: Negative result does not rule out HIV infection. If exposure to HIV infection occurred <14 days ago, contact the laboratory to request addition of HIV-1 RNA detection / quantification test. HIV-1 Ab Screen, P Negative Negative 2021 9:57 PM CDT [facility] Comment: Negative result does not rule out HIV infection. If exposure to HIV infection occurred <14 days ago, contact the laboratory to request addition of HIV-1 RNA detection / quantification test. HIV-2 Ab Screen, P Negative Negative 2021 9:57 PM CDT [facility] Comment: Negative result does not rule out HIV infection. If exposure to HIV infection occurred <14 days ago, contact the laboratory to request addition of HIV-1 RNA detection / quantification test. Blood (Blood, Venous) 03/06/2022 10:56 AM CDT 03/06/2022 7:52 PM CDT Armando Figueroa M.D. LAB MICROBIOLOGY - BLOOD ORDERABLES [facility] [address] [place] [id number], [facility] [place] [address] * HCV Ab Scrn w/Reflex to HCV PCR, Serum (03/06/2022 10:56 AM CDT) HCV Ab Screen, S Negative Negative 03/07/2022 8:[address] [facility] Comment:Lmlzcs-xb-ocmihg rat io is <1.00. Blood (Blood, Venous) 03/06/2022 10:56 AM CDT 03/07/2022 6:56 AM CDT Armando Figueroa M.D. LAB MICROBIOLOGY - BLOOD ORDERABLES [facility] [address] [place] [address] [facility] Dept. of Laboratory Medicine and Pathology [address] [place] [place] [id number] from Last 3 Months or Most Recently Relevant to Health Maintenance Care Teams Foreign Language Instructor Relationship Specialty Start Date End Date Elsewhere, Pcp PCP - General 03/20/22
--- OUTSIDE RECORDS SUMMARY | 2024-02-07 04:03 | XMS_ITS | Referral Summary ---
Author Organization [facility] Address [address] [place] [address] Care Team Providers Care Water Manager Name Role Phone Elsewhere, Pcp Primary Care Provider Unavailabl e Source Comments Patient records contain information from all sites at [facility]. For routine questions regarding patient records, call [phone] during business hours, M-F 8:00 AM - 5:00 PM Central Time. 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 If exposure to HIV infection occurred <14 days ago, contact the laboratory to request addition of HIV-1 RNA detection / quantification test. HIV-2 Ab Screen, P Negative Negative 2021 9:57 PM CDT [facility] Comment: Negative result does not rule out HIV infection. If exposure to HIV infection occurred <14 days ago, contact the laboratory to request addition of HIV-1 RNA detection / quantification test. Blood (Blood, Venous) 03/06/2022 10:56 AM CDT 03/06/2022 7:52 PM CDT Armando Figueroa M.D. LAB MICROBIOLOGY - BLOOD ORDERABLES [facility] [address] [place] [address], [place] [facility] [place] [address] [place] [address] * HCV Ab Scrn w/Reflex to HCV PCR, Serum (03/06/2022 10:56 AM CDT) HCV Ab Screen, S Negative Negative 03/07/2022 8:13 AM CDT [facility] Comment:Tjwags-hc-smktbx rat io is <1.00. Blood (Blood, Venous) 03/06/2022 10:56 AM CDT 03/07/2022 6:56 AM CDT Armando Figueroa M.D. LAB MICROBIOLOGY - BLOOD ORDERABLES [facility] [address] [place] [address] [facility] Dept. of Laboratory Medicine and Pathology [address] [place] [address] from Last 3 Months or Most Recently Relevant to Health Maintenance Care Teams Water Manager Relationship Specialty Start Date End Date Elsewhere, Pcp PCP - General 03/20/22
--- OUTSIDE RECORDS SUMMARY | 2024-02-07 04:03 | XMS_ITS ---
Author Organization [facility] Address [address] [place] [address] Care Team Providers Care Agricultural Engineering Technologist Name Role Phone Unavailable Unavailable Unavailable Surgery Details Not on file Complications Check Surgery Details section. Procedure Estimated Blood Loss Check Surgery Details section. Procedure Findings Check Surgery Details section. Procedure Specimens Taken Check Surgery Details section.
[2024-02-07 04:12] LABS: Hemoglobin* 15.9 gm/dL (13.5-17.5); Lymphocytes Percent Auto 22.9 % (20-44); Mean Corpuscular HGB Conc 35 gm/dL (32-36); Mean Corpuscular Hemoglobin 30 pg (26-34); Mean Corpuscular Volume 88 fL (80-100); Monocytes Percent Auto 8.1 % (0.0-11.0); Platelet Count* 206 K/uL (140-440); RDW Coefficient of Variation % 12.1 % (11.5-15.5); Red Blood Count 5.23 m/uL (4.30-5.90); White Blood Count* 8.75 K/uL (4.50-11.00)
[2024-02-07 04:13] LABS: Basophils Absolute Auto 0.05 K/uL (0.00-0.30); Basophils Percent Auto 0.6 % (0.0-3.0); Eosinophils Absolute Auto 0.06 K/uL (0.00-0.50); Eosinophils Percent Auto 0.7 % (0.0-7.0); Immature Granulocytes Abs Auto 0.06 K/uL (0.00-0.30); Immature Granulocytes Pct Auto 0.7 %; Neutrophils Absolute Auto 5.87 K/uL (1.7-7.0)
[2024-02-07 04:14] LABS: Appearance Urine Clear (Clear); Bilirubin Urine Negative (Negative); Blood Urine Negative (Negative); Color Urine Yellow (Yellow); Glucose Urine Negative (Negative); Ketones Urine Negative (Negative); Leukocyte Esterase Urine Negative (Negative); Nitrite Urine Negative (Negative); Protein Urine Negative (Negative); Urobilinogen Urine 0.2 (0.2-1.0)
[2024-02-07 04:16] LABS: Slide Review Reflex No
[2024-02-07 04:23] LABS: Amphetamine Screen Urine Negative (Negative); Barbiturate Screen Urine Negative (Negative); Benzodiazepines Screen Urine POSITIVE (Negative); Cannabinoid Screen Urine Negative (Negative); Cocaine Screen Urine Negative (Negative); Methadone Screen Urine Negative (Negative); Methamphetamines Screen Urine Negative (Negative); Opiate Screen Urine Negative (Negative); Oxycodone Screen Urine Negative (Negative); Phencyclidine Screen Urine Negative (Negative); Tricyclic Antidepressant Urine Negative (Negative)
[2024-02-07 04:24] LABS: Chloride* 105 mmol/L (96-114)
[2024-02-07 04:25] LABS: Albumin* 5.1 g/dL (3.3-5.0); Potassium* 3.7 mmol/L (3.6-5.1); Sodium* 139 mmol/L (135-149)
[2024-02-07 04:28] LABS: Alanine Aminotransferase* 128 U/L (4-50); Alkaline Phosphatase* 81 U/L (40-150); Anion Gap 11 mEq/L (7-15); Aspartate Amino Transferase* 98 U/L (12-35); Bilirubin Direct* 0.3 mg/dL (0.0-0.5); Bilirubin Total* 0.4 mg/dL (0.1-1.5); Blood Urea Nitrogen* 16 mg/dL (5-24); Calcium* 9.2 mg/dL (8.4-10.6); Carbon Dioxide* 23 mmol/L (20-32); Creatinine* 1.1 mg/dL (0.5-1.5); Est. Creatinine Clearance* 109.34; Estimated Glomerular Filt Rate 96 ml/min; Gamma Glutamyl Transpeptidase* 140 U/L (8-55); Glucose* 106 mg/dL (60-115); Total Protein* 8.5 g/dL (6.0-8.3)
[2024-02-07 04:30] LABS: Ethanol* < 0.01 % (0.01-0.03)
[2024-02-07 05:25] VITALS: PULSE 86; RESP 16; O2SAT 100
== END 2024-02-07 05:25 | disposition home or self-care (01) ==
PROVIDERS: Emergency Provider Family Medicine
DX: F41.9 Anxiety disorder, unspecified (principal)
CPT/HCPCS: 36415; 80048; 80076; 80306; 81003; 82077; 82977; 84443; 85025; 99282; 99283

== ENCOUNTER 2024-02-16 21:47 | Emergency (ER) | payer OTHER, SELFPAY ==
[2024-02-16 21:58] VITALS: BP 153/93; PULSE 112; RESP 16; TEMP 36.2; O2SAT 99; BMI 33.5
--- OUTSIDE RECORDS SUMMARY | 2024-02-16 22:33 | XMS_ITS | Clinical Summary ---
Author Organization [facility] Address [address] [place] [address] Care Team Providers Care Electrical Technology Instructor Name Role Phone Elsewhere, Pcp Primary Care Provider Unavailabl e Source Comments Patient records contain information from all sites at [facility]. For routine questions regarding patient records, call [phone] during business hours, M-F 8:00 AM - 5:00 PM Central Time. 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 If exposure to HIV infection occurred <14 days ago, contact the laboratory to request addition of HIV-1 RNA detection / quantification test. HIV-2 Ab Screen, P Negative Negative 2021 9:57 PM CDT [facility] Comment: Negative result does not rule out HIV infection. If exposure to HIV infection occurred <14 days ago, contact the laboratory to request addition of HIV-1 RNA detection / quantification test. Blood (Blood, Venous) 03/06/2022 10:56 AM CDT 03/06/2022 7:52 PM CDT Armando Figueroa M.D. LAB MICROBIOLOGY - BLOOD ORDERABLES [facility] [address] [place] [id number], [facility] [place] [address] * HCV Ab Scrn w/Reflex to HCV PCR, Serum (03/06/2022 10:56 AM CDT) HCV Ab Screen, S Negative Negative 03/07/2022 8:13 AM CDT [facility] Comment:Dzyggx-ne-mueuuz rat io is <1.00. Blood (Blood, Venous) 03/06/2022 10:56 AM CDT 03/07/2022 6:56 AM CDT Armando Figueroa M.D. LAB MICROBIOLOGY - BLOOD ORDERABLES [facility] [address] [address] [facility] Dept. of Laboratory Medicine and Pathology [address] [place] [id number] from Last 3 Months or Most Recently Relevant to Health Maintenance Care Teams Electrical Technology Instructor Relationship Specialty Start Date End Date Elsewhere, Pcp PCP - General 03/20/22
--- OUTSIDE RECORDS SUMMARY | 2024-02-16 22:33 | XMS_ITS | Referral Summary ---
Author Organization [facility] Address [address] [place] [address] Care Team Providers Care Jewel Lathe Operator Name Role Phone Elsewhere, Pcp Primary Care Provider Unavailabl e Source Comments Patient records contain information from all sites at [facility]. For routine questions regarding patient records, call [phone] during business hours, M-F 8:00 AM - 5:00 PM Central Time. 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 LAB MICROBIOLOGY - BLOOD ORDERABLES [facility] [address] [place] [address], [place] [facility] [place] [address] [place] [address] * HCV Ab Scrn w/Reflex to HCV PCR, Serum (03/06/2022 10:56 AM CDT) HCV Ab Screen, S Negative Negative 03/07/2022 8:13 AM CDT [facility] Comment:Ybzjxy-em-aqutbn rat io is <1.00. Blood (Blood, Venous) 03/06/2022 10:56 AM CDT 03/07/2022 6:56 AM CDT Armando Figueroa M.D. LAB MICROBIOLOGY - BLOOD ORDERABLES [facility] [address] [place] [address] [facility] Dept. of Laboratory Medicine and Pathology [address] [place] [address] from Last 3 Months or Most Recently Relevant to Health Maintenance Care Teams Jewel Lathe Operator Relationship Specialty Start Date End Date Elsewhere, Pcp PCP - General 03/20/22
--- OUTSIDE RECORDS SUMMARY | 2024-02-16 22:33 | XMS_ITS | Clinical Summary ---
Author Organization [facility] Address [place], [place] [address] Care Team Providers Care Table Cover Folder Name Role Phone Arthur Jamison MD Unavailable [phone] Deisi Ford Primary Care Provider Allergies No [...] Mass Index - - Plan of Treatment Upcoming Encounters Date Type Department Care Team (Late st Contact Info) Description 02/17/2024 11:35 AM CDT Office Visit [facility] [address] [place] [address] Lynsey Buchanan PA [address] [place] [address] Health Maintenance Due Date Last Done Comments HIV for age 15-65 2013 Hepatitis C screening for age 18-79 2016 BMI (ht and wt on same day) for age 18+ 03/24/2020 03/24/2019, 07/18/2018, 02/10/2018, Additional history exists Tetanus booster 01/10/2021 01/10/2011 Depression screening for age 12+ 10/31/2021 10/31/2020, 03/24/2019, 02/10/2018, Additional history exists COVID-19 vaccine series (2022-24 season) 2023 Influenza for age 9-49 03/15/2024 Tdap Completed 01/10/2011 HPV series for age 9-26 Completed 02/17/20 15, 02/23/2014, 01/14/2014 Pneumococcal series for age 6-64 Aged Out No longer eligible based on patient's age to complete this topic Care Teams Table Cover Folder Relationship Specialty Start Date End Date Deisi Ford PA [address] [place] [address] PCP - General Physician [facility] Department Worker 07/09/18 Arthur Jamison MD Family Practice Family Practice 06/14/11
--- OUTSIDE RECORDS SUMMARY | 2024-02-16 22:33 | XMS_ITS ---
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 Procedure Estimated Blood Loss Check Surgery Details section. Procedure Findings Check Surgery Details section. Procedure Specimens Taken Check Surgery Details section.
--- NOTE | 2024-02-16 22:55 | ED_ITS ---
HPI - Weakness General Date Seen: 02/16/24 Chief complaint: Weakness Stated complaint: double vision, muscle paralysis Time Seen by Provider: 02/16/24 22:06 Source: patient Mode of arrival: ambulatory Limitations: no limitations History of Present Illness HPI Narrative: Patient is the 23-year-old gentleman has been to the emergency room quite a few times over the last few weeks. He tells me he has double vision when he looks to the extremes of right or left. He thinks this is secondary to eating some spoiled meat of approximately 3 weeks ago. He initially had some nausea approximately 6 hours after this occurred, and 1 episode of vomiting and 1 episode of diarrhea. Since then the GI symptoms have gone away, denies any fevers or chills, denies a headache, denies rashes, but tells me that he feels that he has a bacterial infection causing these symptoms. He was seen on 02/07/2024, and 01/31/2024. When I asked him how much alcohol he drank, he told me that he had abstain now f or the last few months, since he was seen in October. That does not be consistent with the story told the other 2 physicians. He was fearful of brain parasites on the 02/06 visit. All his laboratory work was reassuring with the exception of his liver function tests which were elevated. He was told to follow up with primary care, but did not and has not made that appointment. He comes in tonight telling me the similar symptoms are occurring, very anxious Related Data Home Medications ?Medication ?Instructions ?Recorded ?Confirmed No Known Home Medications 01/31/24 01/31/24 Allergies Allergy/AdvReac Type Severity Reaction Status Date / Time No Known Drug Allergies Allergy Verified 01/31/24 21:46 Review of Systems Status of ROS: Reports: 10 or more systems reviewed and unremarkable except as noted in History and below [facility] Medical History No significant past medical history Surgical History No significant past surgical history Social History Smoking Status: Never smoker Second hand tobacco smoke exposure: No How often do you have a drink containing alcohol: never How many standard drinks containing alcohol do you have on a typical day: 10 or more How often do you have six or more drinks on one occasion: Daily or almost daily AUDIT-C Alcohol total score: 8 Non-prescribed substance use: denies use service: No Exam Narrative: Exam Narrative: On examination in room 6 he is in no apparent distress speaking to me normally, alert oriented x3 he is GCS is 15/15. Speaking to me entirely normally and eloquent Elidia, is TMs are normal his oropharynx is normal, his a couple beats of nystagmus both ways. Neck is supple, good range of motion, chest is good air entry bilaterally with no wheezing crackles noted, is heart sounds are normal, his abdomen is soft and obese there is no guarding no organomegaly, moves all extremities independently and well, little bit of a tremor, bilaterally in his upper extremities, he is able to go down into a full squat and crouch, come back up, tandem walking is better than myself, he does not step out all over a 15 ft. Const: Vital Signs, click to edit/add: Vital Signs - 24 hr 02/16/24 21:58 Temperature 97.1 F L Pulse Rate [Pulse Oximeter] 112 H Respiratory Rate 16 Blood Pressure [Ri ght Upper Arm] 153/93 H Pulse Oximetry 99 Oxygen Delivery Me thod Room Air Documenting provider has reviewed patient's vital signs: yes Course Vital Signs Vital signs: Initial Vital Signs Temperature 97.1 F L 02/16/24 21:58 Temperature Source Temporal Artery Scan 02/16/24 21:58 Pulse Rate 112 H 02/16/24 21:58 Respiratory Rate 16 02/16/24 21:58 Blood Pressure 153/93 H 02/16/24 21:58 Blood Pressure Mean 113 H 02/16/24 21:58 Blood Pressure Position Sitting 02/16/24 21:58 Pulse Oximetry 99 02/16/24 21:58 Oxygen Delivery Method Room Air 02/16/24 21:58 Vital Signs Temperature 97.1 F L 02/16/24 21:58 Pulse Rate 112 H 02/16/24 21:58 Respiratory Rate 16 02/16/24 21:58 Blood Pressure 153/93 H 02/16/24 21:58 Pulse Oximetry 99 02/16/24 21:58 Oxygen Delivery Method Room Air 02/16/24 21:58 Temperature 97.1 F L 02/16/24 21:58 Pulse Rate 112 H 02/16/24 21:58 Respiratory Rate 16 02/16/24 21:58 Blood Pressure 153/93 H 02/16/24 21:58 Pulse Oximetry 99 02/16/24 21:58 Oxygen Delivery Method Room Air 02/16/24 21:58 MDM - Weakness MDM Narrative Medical decision making narrative: Life-threatening differential diagnosis considered include stroke, coronary artery disease, pneumonia, and heart failure. Other differential diagnosis include but are not limited to electrolyte imbalances, anemia, medication reactions, and urinary tract infection I discussed with the patient that his symptoms seem to be more related to anxiety, and when I asked him what he had found on Dr. Fernandes he says that he feels that he should be diagnosed with a bacterial infection, I do not really see a reason for this with his vital signs being the way they are this is more consistent with anxiety, and possibly alcohol use although he disputes this. I do feel he needs primary care follow-up, offered him a couple people that he can see in follow-up, but explained to him that tonight, his examination is all within normal limits. I do recommend that he see eye doctor also to if he is having double vision, but this also can be normal at the extremes of his vision Overall he was not happy with me that I was not going to do any more tests, Medical Records Attestation: I reviewed the patient's medical records. Lab Data Attestation: I reviewed the patient's lab results. Discharge Plan Discharge Clinical Impression: Anxiety about health Patient Disposition: Home, Self-Care Condition: Stable Additional Instructions: I strongly suggest you follow-up with your regular physician, did discuss your concerns. I do not see any evidence of food poisoning, or systemic bacterial infection ongoing within you. For your vision stuff I recommend you see [facility],. Continue your sobriety. No emergency condition exists tonight. Activity Level: Light activity Prescriptions: No Action No Known Home Medications Follow Up/Referrals: Joe Sy MD [Staff Physician] - Provider,Not a Local [Primary Care Provider] - Jesus Mcallister MD [Staff Physician] - Stand Alone Forms: [employer] Info Instructions
== END 2024-02-16 22:40 | disposition home or self-care (01) ==
LOC: ED 22:31
PROVIDERS: Emergency Provider Family Medicine
DX: F41.9 Anxiety disorder, unspecified (principal)
CPT/HCPCS: 99282; 99283; 99284